=== PATIENT | male | born 1965 | race Caucasian/White ===

== ENCOUNTER 2020-10-21 18:40 | Emergency (ER) | payer MEDICARE, OTHER ==
--- NOTE | 2020-10-21 18:54 | ER Document Report ---
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 Reports that the bleeding initially was not too bad became progressively worse throughout the day. Put a compressive dressing on his wound. Denies being on blood thinners. Denies any numbness or tingling to his legs. Patient denies being a diabetic or having a blood pressu re medication. Unable to bear full weight. I have greeted and performed a rapid initial assessment of this patient. A comprehensive ED assessment and evaluation of the patient, analysis of test results and completion of the medical decision making process will be conducted by additional ED providers. PHYSICAL EXAMINATION: CV: s1, s2 regular LUNGS: No respiratory distress Musculoskeletal: ight medial thigh laceration 1 inch. distal pulses + 2 bilaterally and equally. Physical Exam - Vital signs Vitals: Temp Pulse Resp BP Pulse Ox 98.4 F 79 18 143/80 H 97 10/21/20 18:46 10/21/20 18:46 10/21/20 18:46 10/21/20 18:46 10/21/20 18:46 Course - Vital Signs Vital signs: Temp Pulse Resp BP Pulse Ox 98.4 F 79 18 143/80 H 97 10/21/20 18:46 10/21/20 18:46 10/21/20 18:46 10/21/20 18:46 10/21/20 18:46
[2020-10-21 20:12] LABS: ABSOLUTE EOSINOPHILS # (AUTO) 0.1 10^3/uL (0.0-0.6); ABSOLUTE LYMPHOCYTES (AUTO) 2.7 10^3/uL (0.5-4.7); ABSOLUTE MONOCYTES (AUTO) 0.8 10^3/uL (0.1-1.4); ABSOLUTE NEUT (AUTO) 4.9 10^3/uL (1.7-8.2); BASOPHILS % (AUTO) 0.2 % (0-2); HEMATOCRIT 38.2 % (37.9-51.0); LYMPHOCYTES % (AUTO) 31.6 % (13-45); MEAN CORPUSCULAR HEMOGLOBIN 31.5 pg (27.0-33.4); MEAN CORPUSCULAR HGB CONC 34.1 g/dL (32.0-36.0); MEAN CORPUSCULAR VOLUME 93 fl (80-97); MONOCYTES % (AUTO) 9.1 % (3-13); PLATELET COUNT 354 10^3/uL (150-450); RED BLOOD COUNT 4.12 10^6/uL (4.35-5.55); RED CELL DISTRIBUTION WIDTH 14.1 % (11.5-14.0); SEGMENTED NEUTROPHILS % (AUTO) 58.1 % (42-78); TOTAL CELLS COUNTED % (AUTO) 100 %; WHITE BLOOD COUNT 8.5 10^3/uL (4.0-10.5)
[2020-10-21] MEDS ORDERED: LIDOCAINE 1%/EPINEPHRINE INJ 20 ML VIAL ONE (20:15)
[2020-10-21] MEDS ORDERED: TRANEXAMIC ACID INJ/PF 1,000 MG/10 ML SDV ONE (20:15)
[2020-10-21] MEDS ORDERED: CEFTRIAXONE 1 GM/D5W RTU 1 GM/50 ML RTUPB IV ONE (20:47)
[2020-10-21] MEDS ORDERED: DIPH/PERTUSS(ACELL)/TETANUS VAC/PF 0.5 ML SYR (>=10YO) IM ONE (20:48)
--- NOTE | 2020-10-21 20:55 | ER Document Report ---
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 Reports that the bleeding initially was not too bad became progressively worse throughout the day. Put a compressive dressing on his wound. Denies being on blood thinners. Denies any numbness or tingling to his legs. Patient denies being a diabetic or having a blood pressure medication. Unable to bear full weight. I have greeted and performed a rapid initial assessment of this patient. A comprehensive ED assessment and evaluation of the patient, analysis of test results and completion of the medical decision making process will be conducted by additional ED providers. PHYSICAL EXAMINATION: CV: s1, s2 regular LUNGS: No respiratory distress Musculoskeletal: ight medial thigh laceration 1 inch. distal pulses + 2 bilaterally and equally. 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 The wound occurred through his work pants and ripped him along his medial right knee. He denies any loss of sensation or movement of his right knee right ankle right foot. He has good pulses to his dorsalis pedis and sensation to his toes. He has good capillary refill. Patient reports he was doing well after he wrapped it but then it began to bleed again quite heavily by 1800. He therefore came to the ER from his motel room where he says it look like a blood bath was in the room. Upon arrival patient had a pressure dressing applied which helped with bleeding considerably. I was assisted with nursing staff to evaluate the wound. TRAVEL OUTSIDE OF THE [place] IN LAST 30 DAYS: No - HPI Occurred: This afternoon - Around 12 noon Onset/Duration: Sudden Quality of pain: Achy Severity: Mild Pain Level: 1 - Related Data Allergies/Adverse Reactions: No Known Allergies Allergy (Unverified 11/24/20 19:12) Past Medical History - General Information source: Patient - Social History Smoking Status: Never Smoker Cigarette use (# per day): No Chew tobacco use (# tins/day): No Smoking Education Provided: No Frequency of alcohol use: Rare Drug Abuse: None Lives with: Family Family History: Reviewed & Not Pertinent Patient has suicidal ideation: No Patient has homicidal ideation: No Review of Systems - Review of Systems Constitutional: No symptoms reported EENT: No symptoms reported Cardiovascular: No symptoms reported Respiratory: No symptoms reported Gastrointestinal: No symptoms reported Genitourinary: No symptoms reported Male Genitourinary: No symptoms reported Musculoskeletal: No symptoms reported Skin: See HPI, Other - Wound edges with ecchymosis Hematologic/Lymphatic: No symptoms reported Neurological/Psychological: No symptoms reported Physical Exam - Vital signs Vitals: Temp Pulse Resp BP Pulse Ox 98.4 F 79 18 143/80 H 97 10/21/20 18:46 10/21/20 18:46 10/21/20 18:46 10/21/20 18:46 10/21/20 18:46 Interpretation: Normal - General General appearance: Appears well, Alert - HEENT Head: Normocephalic, Atraumatic Eyes: Normal Pupils: PERRL - Respiratory Respiratory status: No respiratory distress Chest status: Nontender Breath sounds: Normal Chest palpation: Normal - Cardiovascular Rhythm: Regular Heart sounds: Normal auscultation Murmur: No - Abdominal Inspection: Normal Distension: No distension Bowel sounds: Normal Tenderness: Nontender Organomegaly: No organomegaly - Back Back: Normal, Nontender - Extremities General upper extremity: Normal inspection, Nontender, Normal color, Normal ROM, Normal temperature General lower extremity: Tender - Right medial knee with 3 cm length laceration with a oozing vascular bleeder which was controlled with lidocaine with epi and direct pressure and a suture x 4 approximating both sides of the wound edges. These were pulled tight interrupted and then patient had pressure dressing applied., Normal color, Normal ROM, Normal temperature, Normal weight bearing. No: Giovani's sign - Neurological Neuro grossly intact: Yes Cognition: Normal Orientation: AAOx4 Mccormick Coma Scale Eye Opening: Spontaneous Mccormick Coma Scale Verbal: Oriented Mccormick Coma Scale Motor: Obeys Commands Livia Coma Scale Total: 15 Speech: Normal Motor strength normal: LUE, RUE, LLE, RLE Sensory: Normal - Psychological Associated symptoms: Normal affect, Normal mood - Skin Skin Temperature: Warm Skin Moisture: Dry Skin Color: Normal Course - Vital Signs Vital signs: Temp Pulse Resp BP Pulse Ox 98.4 F 79 10 L 121/81 97 10/21/20 18:46 10/21/20 18:46 10/21/20 20:00 10/21/20 19:32 10/21/20 20:00 - Laboratory Result Diagrams: 10/21/20 19:00 Laboratory results interpreted by me: 10/21/20 19:00 RBC 4.12 L Hgb 13.0 L RDW 14.1 H Procedures - Laceration/Wound Repair Right Mid- Knee Time completed: 20:55 Wound length (cm): 3 Wound's Depth, Shape: Linear Laceration pre-procedure: Shur-Clens applied Anesthetic type: 1% Lidocaine w/epi Volume Anesthetic (mLs): 30 Wound explored: Clean, No foreign body removed Irrigated w/ Saline (mLs): 20 Wound Debrided: Minimal Wound Repaired With: Sutures Suture Size/Type: Prolene, Other - 2-0 Prolene Number of Sutures: 4 Layer Closure?: No Post-procedure wound care: Sterile dressing applied Post-procedure NV exam normal: Yes Complications: No Discharge - Discharge Clinical Impression: Laceration right medial knee Condition: Stable Disposition: HOME, SELF-CARE Instructions: Tetanus Immunization Given ([facility]), Laceration Care ([facility]), Prophylactic Antibiotic ([facility]) Additional Instructions: Keep wound clean and dry for at least 2 to 3 days. Return to ER if symptoms of bleeding recur. Try to apply direct pressure to the wound if oozing occurs. Also maintain vigilance about having good sensation and good pulses and range of motion of your ankle and foot. Take your medicines as directed sutures out and 2 weeks
[2020-10-21] MEDS ORDERED: LIDOCAINE 1%/EPINEPHRINE INJ 20 ML VIAL INJ ONE (21:23)
[2020-10-21 21:54] VITALS: BP 136/76
== END 2020-10-21 21:54 | disposition home or self-care (01) ==
LOC: ER 18:40
DX: S81.011A Laceration without foreign body, right knee, initial encounter (principal); W29.8XXA Contact with other powered hand tools and household machinery, initial encounter; Y93.89 Activity, other specified; Y99.0 Civilian activity done for income or pay; Z23 Encounter for immunization
CPT/HCPCS: 99284; 90471; 96365; 36415; 85025; 90715; 12002; J3490; J0696